=== PATIENT | female | born 1990 | race Two or more races ===

== ENCOUNTER 2017-03-16 23:21 | Emergency (ER) | payer OTHER ==
[~2017-03-16] VITALS: Ht 149.9 cm; Wt 45.4 kg
--- NOTE | 2017-03-16 23:30 | NUR ---
JOSE GUADALUPE 89 / [employer] FROM HOME, +SI - HI PT STATES SHE WANTED TO KILL HERSELF TAKING 13 PILLS OF HYDROXYZINE PAMOATE 50MG. PT AOX3 RR EVEN AND UNLABORED. NO SOB NOTED. NAD NOTED. NO NVD AT THIS TIME. PT PLACED ON MONITOR WAITING FOR MD BARRAZA.
[2017-03-16 23:56] LABS: BASOPHILS % (AUTO) 0.4 % (0.0-2.0); EOSINOPHILS # (AUTO) 0.1 /CMM (0.0-0.7); EOSINOPHILS % (AUTO) 0.8 % (0.0-6.0); HEMATOCRIT 39 % (33-45); HEMOGLOBIN 13.2 g/dL (11.5-14.8); LYMPHOCYTES # (AUTO) 2.4 /CMM (0.8-4.8); LYMPHOCYTES % (AUTO) 29.6 % (20.0-44.0); MEAN CORPUSCULAR HEMOGLOBIN 32 PG (26.0-33.0); MEAN CORPUSCULAR HGB CONC 34 g/dl (31.0-36.0); MEAN CORPUSCULAR VOLUME 94 fL (82-100); MONOCYTES # (AUTO) 0.5 /CMM (0.1-1.30); MONOCYTES % (AUTO) 5.7 % (2.0-12.0); NEUTROPHILS # (AUTO) 5.2 /CMM (1.8-8.9); NEUTROPHILS % (AUTO) 63.5 % (43.0-81.0); PLATELET COUNT (AUTO) 205 /CMM (150-450); RDW COEFFICIENT OF VARIATION 12.6 (11.5-15.0); RED BLOOD CELL COUNT(AUTO) 4.15 MIL/uL (4.0-5.2); WHITE BLOOD COUNT (AUTO) 8.2 K/uL (4.3-11.0)
--- NOTE | 2017-03-17 00:09 | NUR ---
URINE COLLECTED. CALLED LAB FOR MANAGER PROVIDER RELATIONS.
[2017-03-17 00:12] LABS: CALCIUM, SERUM 9.4 mg/dL (8.5-10.1); CARBON DIOXIDE 25 mmol/L (21-32); CHLORIDE 106 mmol/L (98-107); CREATININE 0.5 mg/dL (0.6-1.3); GLUCOSE 76 mg/dL (74-106); POTASSIUM 3.8 mmol/L (3.5-5.1); SODIUM SERUM 144 mmol/L (136-145); UREA NITROGEN, BLOOD 7 mg/dL (7-18)
[2017-03-17 00:18] LABS: ALANINE AMINOTRANSFERASE 21 U/L (12-78); ALBUMIN 4.4 g/dL (3.4-5.0); ALCOHOL, BLOOD < 3 mg/dL (0-0); ALKALINE PHOSPHATASE 53 U/L (46-116); ASPARTATE AMINOTRANSFERASE 21 U/L (15-37); BILIRUBIN,DIRECT 0.1 mg/dL (0.0-0.2); BILIRUBIN,TOTAL 0.9 mg/dL (0.2-1.0); TOTAL PROTEIN, SERUM 7.4 g/dL (6.4-8.2)
[2017-03-17 00:21] LABS: ACETAMINOPHEN 0 ug/ml (10-30); SALICYLATE 0.6 mg/dL (2.8-20.0)
--- NOTE | 2017-03-17 07:17 | NUR ---
INFORMED DR RICH PT BP 82/47. AWARE. PT GIVEN 1L NS IV BOLUS ORDERED PER
--- NOTE | 2017-03-17 07:26 | NUR ---
REPORT GIVEN TO DARÍO PERRY FOR CELESTE.
[2017-03-17] MEDS ORDERED: IV NS 0.9% 1,000 ML BAG IV ONE (07:30)
--- NOTE | 2017-03-17 08:00 | NUR ---
Patient is resting comfortably in bed with eyes closed. Easily aroused. VSS
[2017-03-17 09:15] LABS: APPEARANCE,URINE CLEAR (CLEAR); BILIRUBIN,URINE NEGATIVE (NEGATIVE); BLOOD, URINE NEGATIVE Ery/uL (NEGATIVE); COLOR,URINE YELLOW (YELLOW); KETONES,URINE NEGATIVE (NEGATIVE); LEUKOCYTE ESTERASE ,URINE NEGATIVE (NEGATIVE); NITRITE, URINE NEGATIVE (NEGATIVE); PH,URINE 7.5 (5.0-8.0); PROTEIN,URINE NEGATIVE (NEGATIVE); UGLUCOSE NEGATIVE (NEGATIVE); UROBILINOGEN,URINE 0.2 EU/dL (0.2)
[2017-03-17 09:18] LABS: PREGNANCY TEST URINE QUAL NEGATIVE (NEGATIVE)
--- NOTE | 2017-03-17 09:30 | NUR ---
MELANIA CHANEL [employer]BER AT FOR EVAL.
--- NOTE | 2017-03-17 09:45 | NUR ---
PT AWAKE, ALERT AND ORIENTED X4. PROVIDED WITH FOOD TRAY.
--- NOTE | 2017-03-17 10:00 | NUR ---
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
--- NOTE | 2017-03-17 10:32 | NUR ---
Patient discharged to home in stable condition. Written and verbal after care instructions given. Patient verbalizes understanding of instruction. IV removed. Catheter intact and site benign. Pressure and 4x4 applied to site. No bleeding noted.
--- NOTE | 2017-03-17 10:32 | NUR ---
PT'S BROTHER AT FOR COMMERCIAL LOAN ANALYST.
[2017-03-17 10:33] VITALS: BP 89/49
== END 2017-03-17 10:34 | disposition home or self-care (01) ==
LOC: ER 23:22
DX: T43.592A Poisoning by other antipsychotics and neuroleptics, intentional self-harm, initial encounter (principal); J45.909 Unspecified asthma, uncomplicated; Y92.89 Other specified places as the place of occurrence of the external cause
CPT/HCPCS: 36415; 80048; 80076; 80305; 80329; 81001; 84703; 85025; 96360; 99284; A4606; G0480 ×2; Z7610; 81000-TC